=== PATIENT | male | born 1960 | race Caucasian/White ===

== ENCOUNTER 2018-04-24 22:19 | Emergency (ER) | payer MEDICAID ==
[2018-04-24 22:19] VITALS: BMI 28.1
[2018-04-24 22:33] VITALS: RESP 18
--- NOTE | 2018-04-24 23:00 | ED PDOC ---
Arrival/HPI - General Chief Complaint: Cough, Cold, Congestion Time Seen by Provider: 04/24/18 22:38 Historian: Patient, Spouse - History of Present Illness Narrative History of Present Illness (Text): 04/24/18 22:57 Sandee Neri is a 57 year old male, whose past medical history includes appendectomy, hypertension, and diabetes, who presents to the Emergency department complaining of cough. Patient states he has been experiencing a dry cough for 3 weeks, for which he was seen by his PMD and prescribed Azithromycin. Patient states he completed the course of antibiotics but is still coughing. Patient also complaining of intermittent subjective fever, chills, lower back pain, lower abdominal cramping, and multiple episodes of watery diarrhea. Patient states he returned to his PMD today and went for an outpatient XR. Patient denies any chest pain, shortness of breath, nausea, vomiting, urinary symptoms, back pain, neck pain, headache, dizziness, or any other complaints. Time/Duration: < month Symptom Onset: Gradual Symptom Course: Unchanged Activities at Onset: Light Context: Home Past Medical History - Provider Review Nursing Documentation Reviewed: Yes - Infectious Disease Hx of Infectious Diseases: None - Tetanus Immunization Tetanus Immunization: Unknown - Cardiac Hx Cardiac Disorders: Yes Hx Hypertension: Yes - Pulmonary Hx Respiratory Disorders: Yes Hx Asthma: Yes - Neurological Hx Neurological Disorder: No - HEENT Hx HEENT Disorder: No - Renal Hx Renal Disorder: No - Endocrine/Metabolic Hx Endocrine Disorders: Yes Hx Diabetes Mellitus Type 2: Yes - Hematological/Oncological Hx Blood Disorders: No - Integumentary Hx Dermatological Disorder: No - Musculoskeletal/Rheumatological Hx Musculoskeletal Disorders: No - Gastrointestinal Hx Gastrointestinal Disorders: Yes - Genitourinary/Gynecological Hx Genitourinary Disorders: No - Psychiatric Hx Psychophysiologic Disorder: No Hx Substance Use: No - Surgical History Hx Appendectomy: Yes Hx Cholecystectomy: Yes - Anesthesia Hx Anesthesia: Yes Hx Anesthesia Reactions: No Hx Malignant Hyperthermia: No - Suicidal Assessment Feels Threatened In Home Enviroment: No Family/Social History - Physician Review Nursing Documentation Reviewed: Yes Family/Social History: Unknown Family HX Smoking Status: Former Smoker Hx Alcohol Use: No Hx Substance Use: No Hx Substance Use Treatment: No Allergies/Home Meds Allergies/Adverse Reactions: Allergies No Known Allergies Allergy (Verified 04/24/18 22:33) Home Medications: Home Meds Medication Instructions Recorded Confirmed GlipiZIDE SR [Glucotrol XL] 10 mg PO DAILY 04/14/14 04/18/14 MetFORMIN [glucOPHAGE] 1,000 mg PO DAILY 04/14/14 07/10/16 Insulin Glargine,Hum.rec.anlog 22 unit SC HS 04/18/14 04/18/14 [Lantus] Insulin Lispro Mix 75/25 [humalog 22 units SC TID 04/18/14 04/18/14 Mix 75/25 75 U/Ml-25 U/Ml 10 Ml] Insulin Glargine, Recombina 20 units SC HS 07/10/16 07/10/16 [Lantus] Insulin Human Regular [Novolin R] 0 units SC AC 07/10/16 Review of Systems - Physician Review All systems were reviewed & negative as marked: Yes - Review of Systems Constitutional: Fevers (+subjective fever) Eyes: Normal ENT: Normal Respiratory: Cough Cardiovascular: Normal. absent: Chest Pain Gastrointestinal: Abdominal Pain, Diarrhea Genitourinary Male: Normal. absent: Dysuria, Frequency, Hematuria, Urinary Output Changes Musculoskeletal: Normal. absent: Back Pain, Neck Pain Skin: Normal. absent: Rash Neurological: Normal. absent: Headache, Dizziness Endocrine: Normal Hemo/Lymphatic: Normal Psychiatric: Normal Physical Exam Vital Signs Reviewed: Yes Vital Signs Temp Pulse Resp BP Pulse Ox 04/24/18 22:32 99.0 F 90 18 154/86 H 97 Temperature: Afebrile Blood Pressure: Normal Pulse: Regular Respiratory Rate: Normal Appearance: Positive for: Well-Appearing, Non-Toxic, Comfortable Pain Distress: None Mental Status: Positive for: Alert and Oriented X 3 - Systems Exam Head: Present: Atraumatic, Normocephalic Pupils: Present: PERRL Extroacular Muscles: Present: EOMI Conjunctiva: Present: Normal Ears: Present: Normal, NORMAL TM, Normal Canal, TM Perf. No: Erythema, TM Bul ging, Fluid Mouth: Present: Moist Mucous Membranes Pharnyx: Present: Normal. No: ERYTHEMA, EXUDATE, TONSILS ENLARGED, Peritonsilar Swelling, Uvular Deviation, Muffled/Hoarse Voice, Strider, Soft Palate/Uvular Edema Nose (External): Present: Atraumatic Nose (Internal): Present: Normal Inspection Neck: Present: Normal Range of Motion. No: Meningeal Signs, MIDLINE TENDERNESS, Paraspinal Tenderness Respiratory/Chest: Present: Clear to Auscultation, Good Air Exchange. No: Respiratory Distress, Accessory Muscle Use Cardiovascular: Present: Regular Rate and Rhythm, Normal S1, S2. No: Murmurs Abdomen: Present: Tenderness (Bilaterl lower abdominal tendneress, left greater than right). No: Distention, Peritoneal Signs Back: Present: Normal Inspection. No: CVA Tenderness, Midline Tenderness, Paraspinal Tenderness Upper Extremity: Present: Normal Inspection. No: Cyanosis, Edema Lower Extremity: Present: Normal Inspection. No: Edema Neurological: Present: GCS=15, CN II-XII Intact, Speech Normal Skin: Present: Warm, Dry, Normal Color. No: Rashes Psychiatric: Present: Alert, Oriented x 3, Normal Insight, Normal Concentration Medical Decision Making ED Course and Treatment: 04/24/18 22:57 Impression: 57 year old male complaining of cough, subjective fever, chills, abdominal cramping, diarrhea. Plan: -- CT Abdomen and Pelvis with IV contrast -- EKG -- Chest X-ray -- Labs, lipase -- Urinalysis, urine culture -- Reassess and disposition Progress Notes: 04/25/18 01:33 CT Abdomen and Pelvis: The liver is of uniform attenuation without mass or defect. There is no intra or extrahepatic biliary ductal dilatation. The spleen is normal. The patient is status post cholecystectomy. The pancreas is of normal contour and attenuation characteristics. There is no evidence of adrenal mass. Both kidneys demonstrate prompt and equal nephrograms. The kidneys are normal in size, shape and configuration. There is no evidence of renal or ureteral mass. No renal or ureteral calculi are identified. There is no hydroureter or hydronephrosis. There is a 7 mm calcified structure present adjacent to the left kidney may represent a calcified granuloma. No evidence for appendicitis. There are thick walled duodenum and loops of jejunum. No evidence for small or large bowel obstruction. There is fecalization of the ileum most compatible with enteritis with ileus pattern. There is no evidence of abdominal ascites or lymphadenopathy. The prostate gland is mildly enlarged. Please correlate with PSA levels. There is no evidence of intrinsic or extrinsic bladder mass. There is no pelvic ascites or lymphadenopathy. Images of the lung bases show no evidence of pleural or parenchymal mass. There are no pleural effusions. There is a calcified pleural plaque present at the left lung base. There are several emphysematous blebs present. There is irregular nodular density present at the right lung base may represent scarring measures 1.5 x 0.6 cm. There is tree in bud nodularity noted in the left lower lobe consistent with atypical infection. Several calcified granulomas present in the left lower lobe and lingula. The bony structures are free of lytic or blastic lesions. IMPRESSION: 1. Status post cholecystectomy. 2. Calcified structure present adjacent to the left kidney may represent a calcified granuloma. 3. Thick walled duodenum and loops of jejunum. 4. Fecalization of the ileum most compatible with enteritis with ileus pattern. 5. The prostate gland is mildly enlarged. Please correlate with PSA levels. 6. Calcified pleural plaque present at the left lung base. 7. Several emphysematous blebs. 8. Irregular nodular density at the right lung base may represent scarring. 9. Tree in bud nodularity noted in the left lower lobe consistent with atypical infection. 10. Several calcified granulomas in the left lower lobe and lingula. Electronically signed on Apr 25, 2018 1:26:22 AM EST by: Dmitri Neff M.D., GLO Certified By [facility] Fellowship Trained MRI and CT Specialist 04/25/18 02:15 On re-evaluation, patient feels better and is in no acute distress. I have discussed the results and plan with the patient, who expresses understanding. Patient in agreement with plan to be discharged home. Patient is stable for discharge. Patient was instructed to follow up with physician or return if symptoms worsen or new concerning symptoms arise. - Lab Interpretations I have reviewed the lab results: Yes - RAD Interpretation Radiology Orders: 04/24/18 22:39 CHEST TWO VIEWS (PA/LAT) [RAD] Stat Auditor Appraiser: Radiologist - Scribe Statement The provider has reviewed the documentation as recorded by the Umm Valiente Provider Scribe Attestation: All medical record entries made by the Scribe were at my direction and personally dictated by me. I have reviewed the chart and agree that the record accurately reflects my personal performance of the history, physical exam, medical decision making, and the department course for this patient. I have also personally directed, reviewed, and agree with the discharge instructions and disposition. Disposition/Present on Arrival - Present on Arrival Any Indicators Present on Arrival: No History of DVT/PE: No History of Uncontrolled Diabetes: No Urinary Catheter: No History of Decub. Ulcer: No History Surgical Site Infection Following: None - Disposition Have Diagnosis and Disposition been Completed?: Yes Diagnosis: Diarrhea Disposition: HOME/ ROUTINE Disposition Time: 01:30 Condition: GOOD Discharge Instructions (ExitCare): Diarrhea in Adolescents and Adults Additional Instructions: SANDEE NERI, thank you for letting us take care of you today. The emergency medical care you received today was directed at your acute symptoms. If you were prescribed any medication, please fill it and take as directed. It may take several days for your symptoms to resolve. Return to the Emergency Department if your symptoms worsen, do not improve, or if you have any other problems. Please contact your doctor or call one of the physicians/clinics you have been referred to that are listed on the Patient Visit Information form that is included in your discharge packet. Bring any paperwork you were given at dis charge with you along with any medications you are taking to your follow up visit. Our treatment cannot replace ongoing medical care by a primary care provider outside of the emergency department. Thank you for allowing the [facility] team to be part of your care today. Follow up with your primary care doctor in 2-3 days for re-evaluation and further management. Prescriptions: Benzonatate [Tessalon Perle] 100 mg PO Q8 PRN #15 capsule PRN Reason: Cough Ciprofloxacin [Cipro] 500 mg PO BID #14 tab Metronidazole [Flagyl] 500 mg PO Q8 #21 tablet Referrals: [facility] Luz Marina Koroma, [Non-Staff] - Follow up with primary Forms: [employer] (Irish)
[2018-04-24] MEDS ORDERED: Sodium Chloride 0.9% 1,000 ML IV ONE (23:06)
[2018-04-24 23:35] LABS: BASO # 0.01 K/mm3 (0.0-2.0); BASO % 0.1 % (0.0-3.0); EOS # 0.1 (0.0-0.7); EOS % 1.2 % (1.5-5.0); GRAN # 7.24 (1.4-6.5); GRAN % 67.2 % (50.0-68.0); HEMOGLOBIN 15.1 g/dL (14.0-18.0); LYMPH # 2.3 (1.2-3.4); LYMPH % 21.2 % (22.0-35.0); MEAN CELL VOLUME 84.7 fl (80.0-105.0); MEAN CORPUSCULAR HEMOGLOBIN 29.2 pg (25.0-35.0); MEAN CORPUSCULAR HGB CONC 34.5 g/dl (31.0-37.0); MEAN PLATELET VOLUME 11.3 fl (7.0-11.0); MONO # 1.1 (0.1-0.6); MONO % 10.3 % (1.0-6.0); RBC 5.17 10^6/uL (3.5-6.1); RED CELL DISTRIBUTION WIDTH 13.2 % (11.5-14.5); WHITE BLOOD COUNT 10.8 10^3/uL (4.5-11.0)
[2018-04-24 23:44] LABS: ALB/GLOB RATIO 1.4 (1.1-1.8); ALBUMIN 3.8 g/dL (3.0-4.8); BLOOD UREA NITROGEN 11 mg/dL (7-21); CALCIUM 9.6 mg/dL (8.4-10.5); GFR NON-AFRICAN AMERICAN > 60; LIPASE 84 U/L (23-300)
[2018-04-24 23:47] LABS: ALT/SGPT 23 U/L (7-56); AST/SGOT 24 U/L (17-59)
[2018-04-25] MEDS ORDERED: Iohexol 350 MG/100 ML VIAL ONE
[2018-04-25 01:24] LABS: URINE BILIRUBIN NEGATIVE (NEGATIVE); URINE BLOOD NEGATIVE (NEGATIVE); URINE GLUCOSE (UA) >=1000 mg/dL (NEGATIVE); URINE LEUKOCYTE ESTERASE NEGATIVE Leu/uL (NEGATIVE); URINE PROTEIN NEGATIVE mg/dL (<30 mg/dL); URINE UROBILINOGEN 0.2 E.U./dL (<1 E.U./dL)
[2018-04-25 01:31] LABS: URINE APPEARANCE CLEAR (CLEAR); URINE COLOR YELLOW (YELLOW)
[2018-04-25 02:44] VITALS: BP 145/79; PULSE 85; TEMP 98.8; O2SAT 100
--- NOTE | 2018-04-25 10:04 | RAD ---
HISTORY: cough r/o infiltrate COMPARISON: Chest x-ray performed 04/19/14 TECHNIQUE: Chest PA and lateral FINDINGS: LUNGS: No focal consolidation. Biapical pleural thickening. Numerous tiny nodular opacities within the right upper and left lower lobe predominantly. Please note that chest x-ray has limited sensitivity for the detection of pulmonary masses. PLEURA: No significant pleural effusion identified. No definite pneumothorax . CARDIOVASCULAR: Heart size appears top normal. No atherosclerotic calcification present. OSSEOUS STRUCTURES: Degenerative changes. VISUALIZED UPPER ABDOMEN: Cholecystectomy clips. OTHER FINDINGS: None. IMPRESSION: Biapical pleural thickening. Numerous tiny nodular opacities within the right upper and left lower lobes predominantly. Recommend follow-up CT of the chest for further evaluation.
--- NOTE | 2018-04-25 14:05 | CT ---
Date of service: 04/25/2018 PROCEDURE: CT Abdomen and Pelvis with contrast HISTORY: lower abdominal pain (LLQ>RLQ) COMPARISON: Chest x-ray performed 04/24/18 TECHNIQUE: Contrast dose: 100 mL Omnipaque 350 Radiation dose: Total exam DLP = 601.97 mGy-cm. This CT exam was performed using one or more of the following dose reduction techniques: Automated exposure control, adjustment of the mA and/or kV according to patient size, and/or use of iterative reconstruction technique. FINDINGS: LOWER THORAX: Calcified pleural plaque at the left lung base. Emphysematous changes. Bilateral lower lobe cysts/blebs. Irregular nodular density at the right lung base measuring approximately 0.6 x 1.5 cm. Tree-in-bud nodularity at the left lower lobe, possibly due to atypical infection. Scattered calcified granulomas. LIVER: Too small to characterize 5 mm right hepatic lobe hypodensity; statistically likely cyst or hemangioma. GALLBLADDER AND BILE DUCTS: Cholecystectomy. PANCREAS: Unremarkable. SPLEEN: Unremarkable. ADRENALS: Unremarkable. KIDNEYS AND URETERS: The kidneys enhance symmetrically. No hydronephrosis or obstructing calculus identified. VASCULATURE: No aortic aneurysm. No atherosclerotic calcification or mural plaque present. BOWEL: Stomach is nondistended. Lack of oral contrast limits evaluation for bowel pathology. Bowel loops appear within normal limits of caliber without evidence of obstruction. APPENDIX: The appendix is not identified. Surgical clips are noted at the level of the cecum. Correlate for history of appendectomy. No secondary signs of acute appendicitis. PERITONEUM: No significant free fluid. No definite free air. LYMPH NODES: No bulky adenopathy identified. BLADDER: Urinary bladder appears mildly thick-walled, possibly exaggerated by under distension. REPRODUCTIVE: Prostate gland measures approximately 3.1 x 3.5 cm. BONES: No acute osseous abnormality is detected. OTHER FINDINGS: 10 x 8 mm calcification in the left retroperitoneum, possibly calcified granuloma or lymph node. Small fat containing umbilical hernia. IMPRESSION: Irregular nodular density at the right lung base measuring approximately 0.6 x 1.5 cm. Tree-in-bud nodularity at the left lower lobe, possibly due to atypical infection. Recommend clinical correlation and follow-up CT of the chest in order to assess for complete resolution and exclude malignant neoplasm. Scattered calcified granulomas. Emphysematous changes. Bilateral lower lobe cysts/blebs. Calcified pleural plaque at the left lung base. Too small to characterize hepatic hypodensity; statistically likely cyst or hemangioma. Mildly thick-walled urinary bladder likely exaggerated by under distension. Recommend correlation with urinalysis. Borderline enlargement of prostate gland. Recommend correlation with PSA. Additional findings as above. Preliminary impression was provided by [facility]. Study marked for PA review.
== END 2018-04-25 02:25 | disposition home or self-care (01) ==
LOC: ED 22:19
DX: R19.7 Diarrhea, unspecified (principal); I10 Essential (primary) hypertension; E11.9 Type 2 diabetes mellitus without complications; Z87.891 Personal history of nicotine dependence
CPT/HCPCS: 71046; 74177; 80053; 81003; 82948; 83690; 83735; 85025; 87086; 99283; J7030; Q9967

== ENCOUNTER 2018-07-10 09:07 | Outpatient (CLI) | payer MEDICAID | END 2018-07-10 09:08 | disposition home or self-care (01) | LOC: RAD 09:07 ==

== ENCOUNTER 2018-09-23 09:26 | Emergency (ER) | payer MEDICAID ==
[2018-09-23 09:26] VITALS: BMI 28.1
--- NOTE | 2018-09-23 09:46 | ED PDOC ---
Arrival/HPI - General Chief Complaint: Headache Time Seen by Provider: 09/23/18 09:32 - History of Present Illness Narrative History of Present Illness (Text): 09/23/18 09:48 Patient is a 57 y/o M presenting with lightheadedness, headache, and shaking in b/l legs. He reports that he woke up with these symptoms. He reports that he thought his sugar might be low so he ate but once it didn't improve completely he presented to ED. He reports that the shaking has resolved but he still has a mild headache. Denies focal numbness, weakness, or tingling. Denies chest pain or shortness of breath. Reports normal stress test 6 years ago. Denies urinary or bowel incontinence. Reports chronic hx of b/l sciatic pain/hip pain that he reports his PMD is aware of. Denies trauma. Denies vision changes or photophobia. Describes the headache as a mild frontal "tightness"- not the worst headache of his life. Past Medical History - Infectious Disease Hx of Infectious Diseases: None - Tetanus Immunization Tetanus Immunization: Unknown - Cardiac Hx Cardiac Disorders: Yes Hx Hypertension: Yes - Pulmonary Hx Respiratory Disorders: Yes Hx Asthma: Yes - Neurological Hx Neurological Disorder: No - HEENT Hx HEENT Disorder: No - Renal Hx Renal Disorder: No - Endocrine/Metabolic Hx Endocrine Disorders: Yes Hx Diabetes Mellitus Type 2: Yes - Hematological/Oncological Hx Blood Disorders: No - Integumentary Hx Dermatological Disorder: No - Musculoskeletal/Rheumatological Hx Musculoskeletal Disorders: No - Gastrointestinal Hx Gastrointestinal Disorders: Yes - Genitourinary/Gynecological Hx Genitourinary Disorders: No - Psychiatric Hx Psychophysiologic Disorder: No Hx Substance Use: No - Surgical History Hx Appendectomy: Yes Hx Cholecystectomy: Yes - Anesthesia Hx Anesthesia: Yes Hx Anesthesia Reactions: No Hx Malignant Hyperthermia: No - Suicidal Assessment Feels Threatened In Home Enviroment: No Family/Social History Family/Social History: No Known Family HX Smoking Status: Former Smoker Hx Alcohol Use: No Hx Substance Use: No Hx Substance Use Treatment: No Allergies/Home Meds Allergies/Adverse Reactions: Allergies No Known Allergies Allergy (Verified 09/23/18 09:32) Home Medications: Home Meds Medication Instructions Recorded Confirmed GlipiZIDE SR [Glucotrol XL] 10 mg PO DAILY 04/14/14 04/18/14 MetFORMIN [glucOPHAGE] 1,000 mg PO DAILY 04/14/14 07/10/16 Insulin Glargine,Hum.rec.anlog 22 unit SC HS 04/18/14 04/18/14 [Lantus] Insulin Lispro Mix 75/25 [humalog 22 units SC TID 04/18/14 04/18/14 Mix 75/25 75 U/Ml-25 U/Ml 10 Ml] Insulin Glargine, Recombina 20 units SC HS 07/10/16 07/10/16 [Lantus] Insulin Human Regular [Novolin R] 0 units SC AC 07/10/16 Review of Systems - Review of Systems Constitutional: absent: Fatigue, Weight Change Eyes: absent: Vision Changes ENT: absent: Hearing Changes Respiratory: absent: SOB, Cough, Sputum, Wheezing Cardiovascular: absent: Chest Pain, Palpitations Gastrointestinal: absent: Abdominal Pain, Constipation, Diarrhea, Nausea, Vomiting Genitourinary Male: absent: Dysuria Neurological: Headache, Other (lightheadedness, shaking of b/l lower extremities). absent: Dizziness, Focal Weakness, Gait Changes, Speech Changes, Facial Droop, Disequilibrium, Seizure Psychiatric: absent: Anxiety, Depression Physical Exam Vital Signs Temp Pulse Resp BP Pulse Ox 09/23/18 09:36 97.9 F 81 18 144/86 100 Temperature: Afebrile Blood Pressure: Normal Pulse: Regular Respiratory Rate: Normal Appearance: Positive for: Well-Appearing, Non-Toxic, Comfortable Pain Distress: None Mental Status: Positive for: Alert and Oriented X 3 Finger Stick Blood Glucose: 256 - Systems Exam Head: Present: Atraumatic, Normocephalic Pupils: Present: PERRL Extroacular Muscles: Present: EOMI Conjunctiva: Present: Normal Mouth: Present: Moist Mucous Membranes Neck: Present: Normal Range of Motion Respiratory/Chest: Present: Clear to Auscultation, Good Air Exchange. No: Respiratory Distress, Accessory Muscle Use Cardiovascular: Present: Regular Rate and Rhythm, Normal S1, S2. No: Murmurs Abdomen: No: Tenderness, Distention Upper Extremity: Present: Normal Inspection. No: Edema Lower Extremity: Present: Normal Inspection Neurological: Present: GCS=15, CN II-XII Intact, Speech Normal, Motor Func Grossly Intact, Normal Sensory Function, Normal Cerebellar Funct, Gait Normal Psychiatric: Present: Alert, Oriented x 3 Medical Decision Making ED Course and Treatment: 09/23/18 09:50 EKG shows NSR at 83bpm with normal intervals and no st changes. [id number] 09/23/18 11:06 CT head negative 09/23/18 12:15 04/24/18 CT abd/pelvis reviewed which showed nodules, atypical density in lung,and enlarged prostate. Patient reports awareness of lung nodules and is already scheduled for repeat CT 09/23/18 12:15 09/23/18 12:17 Cxray negative. Labs reviewed and grossly normal. Headache resolved after tylenol and toradol and IVF. Patient aware of need to follow-up with PMD. Disposition/Present on Arrival - Present on Arrival Any Indicators Present on Arrival: No History of DVT/PE: No History of Uncontrolled Diabetes: No Urinary Catheter: No History of Decub. Ulcer: No History Surgical Site Infection Following: None - Disposition Have Diagnosis and Disposition been Completed?: Yes Diagnosis: Abnormal CT scan, chest, Lung nodule, Diabetes, Leukocytosis, Headache Disposition: HOME/ ROUTINE Disposition Time: 13:10 Patient Plan: Discharge Condition: GOOD Discharge Instructions (ExitCare): Tension Headache, Diabetes Type 2 (DC), How to Keep Track of Your Blood Sugar Additional Instructions: Follow-up with PMD within 2 days. Follow-up with PMD for chronic hip pain. Follow-up for abnormal CT found on last visit. Return to ED if condition worsens. Referrals: Alexi Whitehead MD [Primary Care Provider] - Follow up with primary Forms: [employer] (Icelandic)
[2018-09-23] MEDS ORDERED: Sodium Chloride 0.9% 1,000 ML IV STA (09:48)
[2018-09-23 09:54] VITALS: PULSE 81; RESP 18; TEMP 97.9; O2SAT 100
[2018-09-23 10:14] LABS: BASO # 0.01 K/mm3 (0.0-2.0); BASO % 0.1 % (0.0-3.0); EOS # 0.2 (0.0-0.7); HEMOGLOBIN 14.9 g/dL (14.0-18.0); LYMPH # 1.8 (1.2-3.4); MEAN CORPUSCULAR HEMOGLOBIN 28.6 pg (25.0-35.0); MEAN CORPUSCULAR HGB CONC 33.3 g/dl (31.0-37.0); MEAN PLATELET VOLUME 10.2 fl (7.0-11.0); MONO # 0.6 (0.1-0.6); MONO % 5.3 % (1.0-6.0); RBC 5.21 10^6/uL (3.5-6.1); RED CELL DISTRIBUTION WIDTH 13.4 % (11.5-14.5); WHITE BLOOD COUNT 11.7 10^3/uL (4.5-11.0)
[2018-09-23 10:26] LABS: ALB/GLOB RATIO 1.5 (1.1-1.8); ALBUMIN 3.9 g/dL (3.0-4.8); ALT/SGPT 22 U/L (7-56); AST/SGOT 25 U/L (17-59); BLOOD UREA NITROGEN 20 mg/dL (7-21); CALCIUM 9.3 mg/dL (8.4-10.5); GFR NON-AFRICAN AMERICAN > 60
[2018-09-23 10:39] LABS: TROPONIN I < 0.01 ng/mL
--- NOTE | 2018-09-23 10:39 | CT ---
Date of service: 09/23/2018 PROCEDURE: CT HEAD WITHOUT CONTRAST. HISTORY: lightheaded, tingling COMPARISON: 04/19/2014 TECHNIQUE: Axial computed tomography images were obtained through the head/brain without intravenous contrast. Radiation dose: Total exam DLP = 970.57 mGy-cm. This CT exam was performed using one or more of the following dose reduction techniques: Automated exposure control, adjustment of the mA and/or kV according to patient size, and/or use of iterative reconstruction technique. FINDINGS: HEMORRHAGE: No intracranial hemorrhage. BRAIN: No mass effect or edema. No atrophy or chronic microvascular ischemic changes. VENTRICLES: Unremarkable. No hydrocephalus. CALVARIUM: Unremarkable. PARANASAL SINUSES: Unremarkable as visualized. No significant inflammatory changes. MASTOID AIR CELLS: Unremarkable as visualized. No inflammatory changes. OTHER FINDINGS: None. IMPRESSION: Normal CT of the Head.
[2018-09-23 11:51] VITALS: BP 129/76
--- NOTE | 2018-09-23 12:24 | RAD ---
Date of service: 09/23/2018 HISTORY: lightheaded COMPARISON: 04/24/2018 TECHNIQUE: 1 view obtained. FINDINGS: LUNGS: No active pulmonary disease. PLEURA: No significant pleural effusion identified, no pneumothorax apparent. CARDIOVASCULAR: No aortic atherosclerotic calcification present. Normal cardiac size. No pulmonary vascular congestion. OSSEOUS STRUCTURES: No significant abnormalities. VISUALIZED UPPER ABDOMEN: Normal. OTHER FINDINGS: None. IMPRESSION: No active disease.
--- NOTE | 2018-09-23 17:15 | CARD ---
APPROVED REPORT Date of service: 09/23/2018 EKG Measurement Heart [id number] <Conclusion> Normal sinus rhythm Normal ECG
== END 2018-09-23 13:30 | disposition home or self-care (01) ==
LOC: ED 09:26
DX: E11.9 Type 2 diabetes mellitus without complications (principal); D72.829 Elevated white blood cell count, unspecified; R91.8 Other nonspecific abnormal finding of lung field; R93.89 Abnormal findings on diagnostic imaging of other specified body structures; R51 Headache; I10 Essential (primary) hypertension; Z87.891 Personal history of nicotine dependence
CPT/HCPCS: 70450; 71045; 80053; 82550; 82948; 83735; 84100; 84484; 85025; 93005; 96374; 99285; J1885; J7030